=== PATIENT | female | born 1990 | race Caucasian/White ===

== ENCOUNTER 2018-06-29 15:49 | Emergency (ER) | payer OTHER ==
[2018-06-29] MEDS ORDERED: Proparacaine 0.5% Opth 15 ML BOT ONE (16:02)
[2018-06-29] MEDS ORDERED: Fluorescein Opthalmic Strip ONE (16:02)
[2018-06-29] MEDS ORDERED: Ondansetron ODT 4 MG TAB ONE (16:30)
== END 2018-06-29 16:45 | disposition home or self-care (01) ==
LOC: NAV ERS 15:49
DX: H15.001 Unspecified scleritis, right eye (principal); R11.2 Nausea with vomiting, unspecified; H00.16 Chalazion left eye, unspecified eyelid; H00.13 Chalazion right eye, unspecified eyelid; Z87.891 Personal history of nicotine dependence; Z79.899 Other long term (current) drug therapy
CPT/HCPCS: 99283; Q0162